=== PATIENT | female | born 1990 | race African-American/Black ===

== ENCOUNTER 2018-05-01 16:52 | Emergency (ER) | payer MEDICAID ==
[~2018-05-01] VITALS: Ht 167.6 cm; Wt 53.0 kg
[2018-05-01 19:26] VITALS: BP 125/81
== END 2018-05-01 18:34 | disposition left against medical advice (07) ==
LOC: ER 17:41
DX: O46.91 Antepartum hemorrhage, unspecified, first trimester (principal); Z3A.08 8 weeks gestation of pregnancy; Z53.21 Procedure and treatment not carried out due to patient leaving prior to being seen by health care provider